=== PATIENT | female | born 1950 ===

== ENCOUNTER 2017-10-27 07:51 | Emergency (ER) | payer MEDICARE, OTHER ==
[~2017-10-27] VITALS: Ht 165.1 cm; Wt 110.6 kg
[2017-10-27] MEDS ORDERED: KETOROLAC 30 MG/1 ML ONE (08:16)
[2017-10-27] MEDS ORDERED: DIAZEPAM 5 MG TABLET ONE (08:16)
[2017-10-27] MEDS ORDERED: FELO5TAB PO (08:26)
[2017-10-27] MEDS ORDERED: LISI-170 PO (08:26)
[2017-10-27] MEDS ORDERED: MULT1CAP19 PO (08:27)
[2017-10-27] MEDS ORDERED: SIMV20TA3 PO (08:27)
[2017-10-27] MEDS ORDERED: HYDR12.58 PO (08:28)
[2017-10-27] MEDS ORDERED: DIAZEPAM 5 MG TABLET PO ONE (08:30)
[2017-10-27] MEDS ORDERED: KETOROLAC 30 MG/1 ML IM ONE (08:30)
[2017-10-27 09:01] VITALS: BP 111/43
== END 2017-10-27 09:48 | disposition home or self-care (01) ==
LOC: ED 08:07
DX: S39.012A Strain of muscle, fascia and tendon of lower back, initial encounter (principal); M51.16 Intervertebral disc disorders with radiculopathy, lumbar region; I10 Essential (primary) hypertension; X58.XXXA Exposure to other specified factors, initial encounter; Y93.89 Activity, other specified; Y99.8 Other external cause status; Y92.89 Other specified places as the place of occurrence of the external cause
CPT/HCPCS: 72110; 96372; 99284; J1885